=== PATIENT | male | born 1970 | race Caucasian/White ===

== ENCOUNTER 2023-03-05 21:28 | Outpatient (CLI) | payer BC | END 2023-03-05 23:59 | disposition critical access hospital (66) | LOC: EMS 21:28 | DX: M54.50 Low back pain, unspecified (principal); X50.9XXA Other and unspecified overexertion or strenuous movements or postures, initial encounter; Y93.H2 Activity, gardening and landscaping | CPT/HCPCS: A0425; A0429 ==

== ENCOUNTER 2023-03-05 21:47 | Emergency (ER) | payer BC ==
[2023-03-05] MEDS ORDERED: KETOROLAC 60 MG/2 ML VIAL IM STA (22:59)
[2023-03-05] MEDS ORDERED: LIDOCAINE PATCH 5% TOP STA (22:59)
[2023-03-05] MEDS ORDERED: CYCLOBENZAPRINE 10 MG TABLET PO STA (22:59)
[2023-03-05] MEDS ORDERED: HYDROmorphone 1 MG/ML CARPUJECT IM STA (23:51)
--- NOTE | 2023-03-05 23:52 | ED Physician Documentation ---
PD HPI BACK PAIN - Stated complaint Stated Complaint: BACK PX - Chief complaint Chief Complaint: Back Pain - History obtained from History obtained from: Patient - Additional information Additional information: Patient is a 52-year-old male presenting for evaluation of low back pain that started around noon today. Patient was pulling larger weeds up from a steep driveway when he started experiencing the pain which worsened. He was able to get back into the house and laid down. He then tried to get up and had too much pain in order to do so. He had had been using acetaminophen and ibuprofen wi thout improvement. Pain does not radiate. It is worse with movements. No fever, history of back issues, IV drug use, known cancers, blood thinner use.Denies fall or other injury. No fever, chest pain, abdominal pain, leg pain. No bowel or bladder incontinence or saddle anesthesia. Review of Systems Constitutional: denies: Fever Cardiac: denies: Chest pain / pressure Respiratory: denies: Dyspnea GI: denies: Abdominal Pain, Vomiting : denies: Dysuria, Incontinent Musculoskeletal: reports: Back pain Neurologic: denies: Head injury PD PAST MEDICAL HISTORY - Present Medications Home Medications: Ambulatory Orders Medication Instructions Recorded Confirmed Cyclobenzaprine [Flexeril] 10 mg PO TID PRN #20 tablet 03/06/23 Lidocaine Patch 5% [Lidoderm Patch] 1 patch TOP DAILY PRN #10 patch 03/06/23 Losartan [Cozaar] 50 mg PO DAILY 03/06/23 03/06/23 Oxycodone HCl/Acetaminophen 1 each PO Q6H PRN #10 tablet 03/06/23 [Percocet 5-325 mg Tablet] hydroCHLOROthiazide [Hydrodiuril] 12.5 mg PO DAILY 03/06/23 03/06/23 - Allergies Allergies/Adverse Reactions: Allergies Allergy/AdvReac Type Severity Reaction Status Date / Time sulfamethoxazole Allergy Anaphylaxis Verified 03/05/23 21:52 [From Bactrim] trimethoprim [From Bactrim] Allergy Anaphylaxis Verified 03/05/23 21:52 PD ED PE NORMAL - General General: Alert and oriented X 3, No acute distress, Well developed/nourished - HEENT HEENT: Atraumatic - Neck Neck: Supple, no meningeal sign - Cardiac Cardiac: RRR, No murmur, Strong equal pulses - Respiratory Respiratory: No respiratory distress, Clear bilaterally - Abdomen Abdomen: Soft, Non tender, Non distended - Back Back: No spinal TTP, Other (Paraspinal tenderness in the low lumbar region) - Derm Derm: Warm and dry - Extremities Extremities: No calf tenderness / cord - Neuro Neuro: Alert and oriented X 3, No motor deficit, No sensory deficit, Normal speech Results - Vitals Vitals: Vital Signs - 24 hr 03/05/23 03/06/23 03/06/23 21:53 00:41 01:46 Temperature 36.5 C 36.9 C Heart Rate 84 66 69 Respiratory 16 16 16 Rate Blood Pressure 125/77 138/76 H 138/76 H O2 Saturation 100 99 100 Oxygen O2 Source Room air PD Medical Decision Making - ED course Complexity details: re-evaluated patient, d/w patient ED course: 235 - Doing better and is able to roll from side to side and set himself up a little bit but unable to stand due to increased pain. Patient is a 52-year-old male presenting for evaluation of low back pain after pulling weeds that were difficult earlier today. No focal deficits. Good pulses. No red flag signs or symptoms in regards to back pain to suggest cauda equina Or epidural abscess or hematoma. Vital signs appear stable. No tenderness to the spinous processes.WasPatient did not have a fall or other injury where I feel that a CT or x-ray would be particularly helpful at this time. Treatment with Flexeril, Toradol and lidocaine with significant improvement in his symptoms. He did require 1 dose of IM Dilaudid for additional pain control in order to be able to ambulate. He was able to ambulate down the hallway Without assistance prior to discharge.Discussed continued supportive care as well as concerning symptoms to return for and close follow-up with his PCP. Departure - Departure Disposition: 01 Home, Self Care Clinical Impression: Low back strain Condition: Stable Instructions: ED Sprain Strain Lumbar Prescriptions: Cyclobenzaprine [Flexeril] 10 mg PO TID PRN #20 tablet PRN Reason: Spasms Lidocaine Patch 5% [Lidoderm Patch] 1 patch TOP DAILY PRN #10 patch PRN Reason: pain Oxycodone HCl/Acetaminophen [Percocet 5-325 mg Tablet] 1 each PO Q6H PRN #10 tablet PRN Reason: pain Comments: It appears that you have strained your lower back earlier today. We have given you several medications to help with the pain that you are experiencing including an anti-inflammatory, lidocaine patch, muscle relaxer and narcotic pain medicine. I will send prescriptions for these medications to [facility] in [place]. Please use these as needed and as directed. You can also use ice and heat depending on which feels better on your back. If you develop any worsening symptoms such as fevers, trouble controlling your bowel or bladder function, weakness or have any new concerns please return to the emergency department. Otherwise I would recommend close follow-up with your primary care provider. I am prescribing a short course of narcotic pain medication for you. These are potentially dangerous and addictive medications that should be used carefully. These medications may constipate you. Take an [id number] stool softener (docusate) twice daily with plenty of water while taking these medications. If you go 24 hours without a bowel movement, take [id number] miralax, per package instructions. Do not drink or drive while taking these medications. If you received narcotic or sedating medications while in the emergency department, do not drive for 24 hours. Store this medication in a safe, secure place and out of reach of children. It is a violation of federal law to give or sell this medication to another person or to use in a manner other than prescribed. The ED will not refill narcotic prescriptions, including prescriptions lost or stolen. To dispose of unwanted medications: 1. [facility] at [address] [facility] in [place] has a medication drop box. They accept prescription medications (in pill form) Tuesday through Tuesday 9:00 a.m. to 5:00 p.m. 2. [facility] [employer] [facility] accepts prescription medications (in pill form only) for disposal year round. Call for more information. 3. Contact the [facility] for the next [facility] sponsored prescription drug collection event. , [phone], or [phone]; Note that many narcotic pain relievers also contain Tylenol/acetaminophen. Please ensure that your total dose of acetaminophen from all sources does not exceed 3 g (3000 mg) per day. Discharge Date/Time: 03/06/23 02:00
[2023-03-06 00:48] VITALS: BP 138/76
[2023-03-06] MEDS ORDERED: CYCLOBENZAPRINE 10 MG Prepack 2 PO PRN (01:44)
[2023-03-06] MEDS ORDERED: oxyCODONE/ACET 5/325 Prepack 4 PO STA (01:44)
== END 2023-03-06 02:00 | disposition home or self-care (01) ==
LOC: ED 21:47
DX: S39.012A Strain of muscle, fascia and tendon of lower back, initial encounter (principal); X50.1XXA Overexertion from prolonged static or awkward postures, initial encounter; Y93.H2 Activity, gardening and landscaping; Y92.096 Garden or yard of other non-institutional residence as the place of occurrence of the external cause
CPT/HCPCS: 96372; 99283; A9270; J1170